=== PATIENT | male | born 2000 | race Caucasian/White ===

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

== ENCOUNTER 2022-03-07 16:16 | Outpatient (REF) | payer OTHER, SELFPAY ==
[2022-03-09 11:25] LABS: COVID-19 RT-PCR UVMMC Result Negative (Negative)
== END 2022-03-07 16:17 | disposition home or self-care (01) ==
LOC: LBN 16:16
PROVIDERS: Referring Provider Student in an Organized Health Care Education/Training Program; Visit Provider Student in an Organized Health Care Education/Training Program
DX: Z20.822 Contact with and (suspected) exposure to COVID-19 (principal)
CPT/HCPCS: U0003